=== PATIENT | male | born 1980 | race Caucasian/White ===

== ENCOUNTER 2024-05-06 23:57 | Emergency (ER) | payer SELFPAY ==
[2024-05-07 00:39] LABS: #Eosinphils Less than 0.03 10x3/uL (0.0-0.7); %Basophils 0.9 % (0.0-1.0); %Eosinophils 0.2 % (0.0-10.0); %Lymphocytes 24.5 % (21.0-51.0); %Neutrophils 64.1 % (42.0-75.0); Hematocrit 44.9 % (42.0-52.0); Hemoglobin 15.1 g/dL (14.0-18.0); Mean Corpuscular HGB CONC 33.6 g/dL (32.0-36.0); Mean Corpuscular Hemoglobin 34.2 pg (27.0-31.0); Mean Corpuscular Volume 101.6 fL (78.0-98.0); Mean Platelet Volume 8.8 fL (7.4-10.4); Platelet Count 313 10x3/uL (130-400); RBC Distribution Width 13.3 % (11.5-14.5); Red Blood Cell (RBC) Count 4.42 mill/uL (4.70-6.10)
[2024-05-07 00:58] LABS: ALT (SGPT) 84 U/L (8-55); AST (SGOT) 53 U/L (5-34); Albumin 4.5 g/dL (3.5-5.0); Alkaline Phosphatase 46 U/L (40-110); Anion Gap 18 mmol/L (10-20); BUN (Urea Nitrogen) 11 mg/dL (8.9-20.6); Bilirubin, Total 0.9 mg/dL (0.2-1.2); CK (CPK) 154 U/L (30-200); Calc. Creatinine Clearance 0 mL/min (70-130); Carbon Dioxide 22 mmol/L (22-29); Chloride 100 mmol/L (98-107); Estimated GFR 114; Globulin 3.7 g/dL (2.4-3.5); Glucose 88 mg/dL (70-105); Potassium 3.1 mmol/L (3.5-5.1); Protein, Total 8.2 g/dL (6.0-8.3); Sodium 137 mmol/L (136-145)
[2024-05-07 00:59] LABS: Acetaminophen Less than 10 mcg/mL (Less than 10); Alcohol 45.7 mg/dL (Less than 10); Salicylate Less than 8.0 mg/dL (Less than 8.0)
[2024-05-07] MEDS ORDERED: Lorazepam 2 MG/ML VIAL ONE (01:26)
[2024-05-07] MEDS ORDERED: Thiamine HCl 200 MG/2 ML VIAL ONE (01:57)
[2024-05-07 02:19] LABS: Magnesium 1.8 mg/dL (1.6-2.6)
== END 2024-05-07 04:49 ==
LOC: ERS 23:57
DX: F32.9 Major depressive disorder, single episode, unspecified (principal); R45.851 Suicidal ideations; F10.10 Alcohol abuse, uncomplicated; Y90.2 Blood alcohol level of 40-59 mg/100 ml
CPT/HCPCS: 36415; 80053; 80307; 82550; 83735; 84443; 85025; 93005; 96374; 96375; J2060; J3411